=== PATIENT | female | born 1995 | race African-American/Black ===

== ENCOUNTER 2016-12-03 12:29 | Emergency (ER) | payer MEDICAID ==
[~2016-12-03] VITALS: Ht 170.2 cm; Wt 74.8 kg
[~2016-12-03 12:29] MED LIST: ALPR0.25 PO; AMLO10TA2 PO; DIPH25CA61 PO; FAMO-79 PO; HYDR200T PO; MYCO250C PO; NAPR550T3 PO; OXYC5SOL8 PO; PRED2.5T PO; QUET100T4 PO; QUET50TA5 PO; TRAZ50TA18 PO
[2016-12-03] MEDS ORDERED: SERT50TA5 PO (13:49)
[2016-12-03] MEDS ORDERED: IBUP-1222 PO (13:49)
[2016-12-03] MEDS ORDERED: OLAN10TA9 PO (13:49)
[2016-12-03] MEDS ORDERED: ONDANSETRON 2MG/ML, 2ML IVPush ONE (14:00)
[2016-12-03] MEDS ORDERED: ONDANSETRON 2MG/ML, 2ML ONE (14:02)
[2016-12-03] MEDS ORDERED: HYDROmorphone 1 MG/ML, 1ML ONE ×2 (14:02→15:24)
[2016-12-03] MEDS: HYDROmorphone 1 MG/ML, 1ML IVPush PRN ×2 (14:03→15:27)
[2016-12-03 14:06] LABS: PATH.CAST-FLAG NOT PRESENT; SPERM-FLAG NOT PRESENT; SRC-FLAG NOT PRESENT; XTAL-FLAG NOT PRESENT; YLC-FLAG NOT PRESENT
[2016-12-03 14:21] LABS: ASPARTATE AMINO TRANSFERASE 33 U/L (15-37); BLOOD UREA NITROGEN 16 mg/dL (7-18)
[2016-12-03 17:06] VITALS: BP 104/63
== END 2016-12-03 17:28 | disposition home or self-care (01) ==
LOC: ED 17:15
DX: N83.292 Other ovarian cyst, left side (principal); N30.00 Acute cystitis without hematuria; D50.0 Iron deficiency anemia secondary to blood loss (chronic); M54.5 Low back pain
CPT/HCPCS: 36415; 74020; 76830; 80053; 81001; 83690; 84703; 85025; 87086; 96374; 96375; 96376; 99285; J1170; J2405

== ENCOUNTER 2017-07-11 18:36 | Emergency (ER) | payer MEDICAID ==
[~2017-07-11] VITALS: Ht 170.2 cm; Wt 72.4 kg
[~2017-07-11 18:36] MED LIST changes: +IBUP-1222 PO; +NAPR-850 PO; -NAPR550T3 PO; +OLAN10TA9 PO; +SERT50TA5 PO
[2017-07-11 18:39] VITALS: BP 134/92
[2017-07-11] MEDS ORDERED: OXYcodone/APAP 5/325MG TABLET PO ONE (19:00)
[2017-07-11 19:11] LABS: HEMATOCRIT 37.2 % (34.6-47.8); HEMOGLOBIN 12.4 g/dL (11.7-16.4); WHITE BLOOD COUNT 6.9 x10^3/uL (3.4-10)
[2017-07-11 19:22] LABS: BLOOD UREA NITROGEN 17 mg/dL (7-18)
== END 2017-07-11 20:07 | disposition home or self-care (01) ==
LOC: ED 19:36
DX: L03.115 Cellulitis of right lower limb (principal)
CPT/HCPCS: 36415; 80048; 82040; 85025; 99285

== ENCOUNTER 2017-08-13 00:01 | Inpatient (IN) | payer MEDICAID ==
[~2017-08-13] VITALS: Ht 170.2 cm; Wt 105.8 kg
[2017-08-13] MEDS ORDERED: SODIUM CHLORIDE FLUSH 10ML SYR IVF ONE (01:00)
[2017-08-13] MEDS ORDERED: ALBUTEROL/IPRATROPIUM 2.5MG/0.5MG, 3 ML NPPB ONE (01:00)
[2017-08-13] MEDS ORDERED: SODIUM CHLORIDE 0.9% 1,000ML IVBOLUS ONE ×4 (01:00→15:00)
[2017-08-13] MEDS ORDERED: ALBUTEROL/IPRATROPIUM 2.5MG/0.5MG, 3 ML ONE (01:09)
[2017-08-13 01:14] LABS: MEAN CORPUSCULAR HEMOGLOBIN 28.3 pg (27.0-34.8); MEAN PLATELET VOLUME 8.5 fL (7.4-10.4); PLATELET COUNT 265 x10^3/uL (130-400); RED CELL DISTRIBUTION WIDTH 14.3 % (9.6-15.2)
[2017-08-13 01:21] LABS: INTERNATIONAL NORMALIZED RATIO 1.12 (0.93-1.1); PROTHROMBIN TIME 11.6 Seconds (9.6-11.5)
[2017-08-13 01:24] LABS: ALANINE AMINOTRANSFERASE 17 U/L (12-78); ALBUMIN 2.8 g/dL (3.4-5.0); ANION GAP 15 mmol/L (5-15); CALCIUM 8.5 mg/dL (8.5-10.1); CHLORIDE 104 mmol/L (98-107); CREATININE 0.95 mg/dL (0.55-1.02)
[2017-08-13 01:26] LABS: ALKALINE PHOSPHATASE 83 U/L (45-117); BILIRUBIN,TOTAL 3.1 mg/dL (0.2-1.0); TOTAL PROTEIN 8.2 g/dL (6.4-8.2)
[2017-08-13 01:29] LABS: MD YES
[2017-08-13 01:38] LABS: RAPID INFLUENZA A Negative (Negative)
[2017-08-13 01:39] LABS: RAPID INFLUENZA B Negative (Negative)
[2017-08-13 01:39] LABS: BANDS%(MANUAL) 33 % (0-7); LYMPH#(MANUAL) 1.27 x10^3/uL (1-3.4); LYMPHS% (MANUAL) 11 % (22-44); MONOS#(MANUAL) 0.69 x10^3/uL (0.3-2.7); MONOS% (MANUAL) 6 % (2-9); SEG#(MANUAL) 5.75 x10^3/uL (1.8-6.8); SEGS% (MANUAL) 50 % (42-75)
[2017-08-13 01:40] LABS: <PLATELET ESTIMATE> ADEQUATE; ANISOCYTOSIS 1+; LARGE PLATELETS 1+
[2017-08-13] MEDS ORDERED: PROPOFOL 100 ML IV ONE (01:48)
[2017-08-13] MEDS ORDERED: VANCOMYCIN 1,600 MG in SODIUM CHLORIDE 0.9% 250 ML IV ONE (02:00)
[2017-08-13] MEDS ORDERED: PIPERACILLIN/TAZO/PMX 3.375GM 50 ML IV ONE (02:00)
[2017-08-13] MEDS ORDERED: VANCOMYCIN PER PHARMACY MC PRN ×3 (02:00→07:30)
[2017-08-13] MEDS ORDERED: PIPERACILLIN/TAZO/PMX 3.375GM 50 ML ONE (02:16)
[2017-08-13] MEDS ORDERED: LORazepam 2 MG/ML, 1ML IVPush PRN (02:30)
[2017-08-13] MEDS ORDERED: PIPERACILLIN/TAZO/PMX 4.5GM 100 ML IV SCH (02:30)
[2017-08-13] MEDS ORDERED: ONDANSETRON 2MG/ML, 2ML IVPush PRN (02:30)
[2017-08-13] MEDS ORDERED: morphine SULFATE 10 MG/ML, 1ML IVPush PRN (02:30)
[2017-08-13] MEDS ORDERED: POTASSIUM CHLORIDE 40 MEQ in D5%-0.9% NACL 1,000 ML IV SCH (02:30)
[2017-08-13] MEDS ORDERED: ETOMIDATE 40 MG/20 ML IVPush ONE (03:00)
[2017-08-13] MEDS ORDERED: PROPOFOL 100 ML IV PRN (03:00)
[2017-08-13] MEDS ORDERED: VECURONIUM 10 MG IVPush ONE (03:00)
[2017-08-13] MEDS ORDERED: MIDAZOLAM 1 MG/ML, 5ML IVPush ONE (03:00)
[2017-08-13] MEDS ORDERED: SUCCINYLCHOLINE 20 MG/ML, 10ML IVPush ONE (03:00)
[2017-08-13] MEDS ORDERED: MIDAZOLAM 1 MG/ML, 5ML ONE ×3 (03:09→03:17)
[2017-08-13] MEDS ORDERED: VECURONIUM 50 MG in SODIUM CHLORIDE 0.9% 250 ML IV PRN (04:16)
[2017-08-13] MEDS: ENOXAPARIN 40 MG/0.4 ML SQ SCH (04:20)
[2017-08-13] MEDS ORDERED: FENTANYL PF 2,500 MCG in SODIUM CHLORIDE 0.9% 200 ML IV PRN (04:30)
[2017-08-13] MEDS ORDERED: SODIUM CHLORIDE 0.9% 1,000ML IV SCH (04:30)
[2017-08-13] MEDS ORDERED: SENNA/DOCUSATE TABLET NG PRN (04:30)
[2017-08-13] MEDS ORDERED: LIDOCAINE-MPF 1%, 2ML ENDO PRN (04:30)
[2017-08-13] MEDS ORDERED: PHARMACY MAY ADJ FOR RENAL FX MC SCH (04:30)
[2017-08-13] MEDS ORDERED: PHARMACOKINETIC MONITORING MC PRN ×2 (04:30→08:30)
[2017-08-13] MEDS ORDERED: BISACODYL 10 MG SUPP PR PRN (04:30)
[2017-08-13] MEDS ORDERED: SENNOSIDES 8.8 MG/5 ML ORAL SOL NG PRN (04:30)
[2017-08-13] MEDS ORDERED: FENTANYL PF 100 MCG/2ML IVPush PRN (04:30)
[2017-08-13] MEDS ORDERED: LACTULOSE 20 GM/30 ML UDC NG PRN (04:30)
[2017-08-13] MEDS: SODIUM BICARBONATE 8.4% 150 MEQ in DEXTROSE 5% 1,000 ML IV SCH ×3 (05:21→19:44)
[2017-08-13] MEDS: FENTANYL PF 2,500 MCG in SODIUM CHLORIDE 0.9% 200 ML IV PRN (05:21)
[2017-08-13] MEDS: FAMOTIDINE 20 MG/2 ML IV SCH ×2 (05:22→16:41)
[2017-08-13 05:27] LABS: MEAN CORPUSCULAR HEMOGLOBIN 29.1 pg (27.0-34.8); MEAN CORPUSCULAR HGB CONC 33.5 g/dL (32.4-35.8); MEAN CORPUSCULAR VOLUME 87.1 fL (80-100); MEAN PLATELET VOLUME 8.5 fL (7.4-10.4); PLATELET COUNT 215 x10^3/uL (130-400); RED BLOOD COUNT 2.99 x10^6/uL (3.82-5.3); RED CELL DISTRIBUTION WIDTH 15.2 % (9.6-15.2)
[2017-08-13 05:38] LABS: ANION GAP 10 mmol/L (5-15); CALCIUM 6.7 mg/dL (8.5-10.1); CHLORIDE 110 mmol/L (98-107)
[2017-08-13 05:49] LABS: MD YES
[2017-08-13 05:56] LABS: BAND#(MANUAL) 1.88 x10^3/uL; BANDS%(MANUAL) 25 % (0-7); LYMPHS% (MANUAL) 20 % (22-44); METAMYELOCYTES% (MANUAL) 4 % (0-1); MONOS% (MANUAL) 8 % (2-9); NRBC % (MANUAL) 1 % (0-1); SEG#(MANUAL) 3.23 x10^3/uL (1.8-6.8); SEGS% (MANUAL) 43 % (42-75)
[2017-08-13 05:57] LABS: <PLATELET ESTIMATE> ADEQUATE; ANISOCYTOSIS 1+; POLYCHROMASIA 1+
[2017-08-13 05:58] LABS: <PLT MORPHOLOGY> NORMAL PLT MORPH
[2017-08-13 06:00] VITALS: BP 92/48
[2017-08-13] MEDS ORDERED: FLU VACC QS2017-18 (36MOS+) UP/PF 0.5 ML IM-VACC ONE (06:30)
[2017-08-13] MEDS: PROPOFOL 100 ML IV PRN ×3 (07:01→18:17)
[2017-08-13] MEDS: ALBUTEROL/IPRATROPIUM 2.5MG/0.5MG, 3 ML INLINE SCH ×4 (07:15→22:43)
[2017-08-13] MEDS ORDERED: ACETAMINOPHEN 650 MG/20.3 ML UDC ONE (07:19)
[2017-08-13] MEDS: ACETAMINOPHEN 650 MG/20.3 ML UDC PO PRN (07:23)
[2017-08-13 07:35] LABS: FIO2 80 %
[2017-08-13] MEDS ORDERED: NOREPINEPHRINE 1 MG/ML, 4ML ONE (07:45)
[2017-08-13 08:20] LABS: AMPHETAMINE SCREEN, URINE Positive (Negative); BARBITURATE SCREEN, URINE Negative (Negative); BENZODIAZEPINE SCREEN, URINE Positive (Negative); CANNABINOID SCREEN, URINE Positive (Negative); COCAINE SCREEN, URINE Negative (Negative); METHADONE SCREEN, URINE Negative (Negative); OPIATE SCREEN, URINE Positive (Negative)
[2017-08-13 08:24] LABS: THYROID STIMULATING HORMONE 1.4 mIU/L (0.358-3.740)
[2017-08-13] MEDS: PIPERACILLIN/TAZO 4.5 GM in SODIUM CHLORIDE 0.9% 100 ML IVPB SCH ×4 (08:29→23:44)
[2017-08-13] MEDS ORDERED: PIPERACILLIN/TAZO 4.5 GM in SODIUM CHLORIDE 0.9% 100 ML IVPB SCH (08:30)
[2017-08-13] MEDS: POTASSIUM CHLORIDE 10% 40 MEQ/30 ML UDC PO SCH ×2 (08:31→23:26)
[2017-08-13] MEDS ORDERED: FAMOTIDINE 20 MG/2 ML IVPush SCH (09:00)
[2017-08-13] MEDS ORDERED: MAGNESIUM SULFATE PMX 4GM/100M 100 ML IV ONE (09:30)
[2017-08-13] MEDS: VASOPRESSIN 100 UNIT in SODIUM CHLORIDE 0.9% 495 ML IV PRN (09:47)
[2017-08-13] MEDS: HYDROCORTISONE 100 MG INJ. IVPush SCH ×2 (10:16→18:10)
[2017-08-13] MEDS: PHENYLEPHRINE 10 MG in SODIUM CHLORIDE 0.9% 249 ML IV PRN ×2 (10:24→16:39)
[2017-08-13] MEDS: NOREPINEPHRINE 4 MG in SODIUM CHLORIDE 0.9% 246 ML IV PRN ×2 (12:57→18:06)
[2017-08-13 14:09] LABS: FIO2 80 %
[2017-08-13] MEDS ORDERED: VANCOMYCIN 1,600 MG in SODIUM CHLORIDE 0.9% 250 ML IV SCH (15:00)
[2017-08-13 15:09] LABS: ALANINE AMINOTRANSFERASE 15 U/L (12-78); ALBUMIN 1.8 g/dL (3.4-5.0); ANION GAP 15 mmol/L (5-15); CALCIUM 6.9 mg/dL (8.5-10.1); CHLORIDE 107 mmol/L (98-107); CREATININE 1.19 mg/dL (0.55-1.02)
[2017-08-13 15:12] LABS: ALKALINE PHOSPHATASE 65 U/L (45-117); BILIRUBIN,TOTAL 2.8 mg/dL (0.2-1.0)
[2017-08-13 15:17] LABS: MEAN CORPUSCULAR HEMOGLOBIN 29.1 pg (27.0-34.8); MEAN CORPUSCULAR HGB CONC 32.9 g/dL (32.4-35.8); MEAN CORPUSCULAR VOLUME 88.3 fL (80-100); MEAN PLATELET VOLUME 8.8 fL (7.4-10.4); PLATELET COUNT 266 x10^3/uL (130-400); RED BLOOD COUNT 3.47 x10^6/uL (3.82-5.3)
[2017-08-13 15:32] LABS: MD YES
[2017-08-13 15:44] LABS: BAND#(MANUAL) 2.65 x10^3/uL; BANDS%(MANUAL) 34 % (0-7); LYMPHS% (MANUAL) 9 % (22-44); METAMYELOCYTES# (MANUAL) 0.23 x10^3/uL (0-0); METAMYELOCYTES% (MANUAL) 3 % (0-1); MONOS#(MANUAL) 0.31 x10^3/uL (0.3-2.7); MONOS% (MANUAL) 4 % (2-9); MYELOCYTES# (MANUAL) 0.08 x10^3/uL (0-0); MYELOCYTES% (MANUAL) 1 % (0-0); NRBC % (MANUAL) 1 % (0-1); SEGS% (MANUAL) 50 % (42-75)
[2017-08-13 15:45] LABS: <PLATELET ESTIMATE> ADEQUATE; <PLT MORPHOLOGY> NORMAL PLT MORPH; ANISOCYTOSIS 1+
[2017-08-13 15:46] LABS: PMNS WITH VACUOLES 1+
[2017-08-13 15:48] LABS: TOXIC GRAN 2+
[2017-08-13] MEDS ORDERED: POTASSIUM CHLORIDE 10% 40 MEQ/30 ML UDC PO ONE (16:00)
[2017-08-13] MEDS ORDERED: OMNIPAQUE 350 MG/ML, 100ML BOTTLE ONE (16:37)
[2017-08-13] MEDS: VANCOMYCIN 1,600 MG in SODIUM CHLORIDE 0.9% 250 ML IV SCH (17:48)
[2017-08-13] MEDS: NOREPINEPHRINE 16 MG in SODIUM CHLORIDE 0.9% 234 ML IV PRN (19:44)
[2017-08-13 19:47] LABS: MICROSCOPIC INDICATED
[2017-08-13 20:05] LABS: CULTURE INDICATED? NO
[2017-08-13] MEDS: PHENYLEPHRINE 20 MG in SODIUM CHLORIDE 0.9% 248 ML IV PRN (20:33)
[2017-08-13] MEDS: VECURONIUM 50 MG in SODIUM CHLORIDE 0.9% 250 ML IV PRN (20:40)
[2017-08-14] MEDS: PHENYLEPHRINE 20 MG in SODIUM CHLORIDE 0.9% 248 ML IV PRN (00:11)
[2017-08-14] MEDS: NOREPINEPHRINE 16 MG in SODIUM CHLORIDE 0.9% 234 ML IV PRN ×3 (00:12→22:01)
[2017-08-14] MEDS: ACETAMINOPHEN 650 MG/20.3 ML UDC PO PRN (00:14)
[2017-08-14] MEDS: PROPOFOL 100 ML IV PRN ×3 (00:15→18:15)
[2017-08-14] MEDS: SODIUM BICARBONATE 8.4% 150 MEQ in DEXTROSE 5% 1,000 ML IV SCH ×5 (01:44→19:23)
[2017-08-14] MEDS: HYDROCORTISONE 100 MG INJ. IVPush SCH ×3 (01:46→17:11)
[2017-08-14] MEDS: VANCOMYCIN 1,600 MG in SODIUM CHLORIDE 0.9% 250 ML IV SCH (01:46)
[2017-08-14] MEDS: ENOXAPARIN 40 MG/0.4 ML SQ SCH (01:46)
[2017-08-14] MEDS: ALBUTEROL/IPRATROPIUM 2.5MG/0.5MG, 3 ML INLINE SCH ×6 (02:14→22:11)
[2017-08-14] MEDS: PHENYLEPHRINE 80 MG in SODIUM CHLORIDE 0.9% 242 ML IV PRN ×2 (04:05→13:35)
[2017-08-14 04:13] LABS: ALANINE AMINOTRANSFERASE 19 U/L (12-78); ALBUMIN 1.5 g/dL (3.4-5.0); ANION GAP 11 mmol/L (5-15); CHLORIDE 106 mmol/L (98-107); CREATININE 1.48 mg/dL (0.55-1.02)
[2017-08-14 04:15] LABS: ALKALINE PHOSPHATASE 62 U/L (45-117); BILIRUBIN,TOTAL 2.2 mg/dL (0.2-1.0); TOTAL PROTEIN 5.6 g/dL (6.4-8.2)
[2017-08-14 04:19] LABS: CALCIUM 5.9 mg/dL (8.5-10.1)
[2017-08-14 04:22] LABS: MEAN CORPUSCULAR HEMOGLOBIN 29.5 pg (27.0-34.8); MEAN CORPUSCULAR HGB CONC 33.4 g/dL (32.4-35.8); MEAN CORPUSCULAR VOLUME 88.1 fL (80-100); MEAN PLATELET VOLUME 8.7 fL (7.4-10.4); PLATELET COUNT 286 x10^3/uL (130-400); RED BLOOD COUNT 3.46 x10^6/uL (3.82-5.3); RED CELL DISTRIBUTION WIDTH 15.2 % (9.6-15.2)
[2017-08-14] MEDS ORDERED: CALCIUM GLUCONATE 9.2 MEQ in SODIUM CHLORIDE 0.9% 100 ML IV ONE ×2 (04:30→12:00)
[2017-08-14] MEDS ORDERED: ACETAMINOPHEN 650 MG SUPP PR PRN (04:30)
[2017-08-14 04:43] LABS: MD YES
[2017-08-14 04:46] LABS: ANISOCYTOSIS 1+; BAND#(MANUAL) 6.03 x10^3/uL; BANDS%(MANUAL) 46 % (0-7); LYMPH#(MANUAL) 0.79 x10^3/uL (1-3.4); LYMPHS% (MANUAL) 6 % (22-44); METAMYELOCYTES# (MANUAL) 0.13 x10^3/uL (0-0); METAMYELOCYTES% (MANUAL) 1 % (0-1); MONOS#(MANUAL) 0.39 x10^3/uL (0.3-2.7); MONOS% (MANUAL) 3 % (2-9); SEG#(MANUAL) 5.76 x10^3/uL (1.8-6.8); SEGS% (MANUAL) 44 % (42-75); TOXIC GRAN 2+
[2017-08-14 04:47] LABS: <PLATELET ESTIMATE> ADEQUATE; <PLT MORPHOLOGY> NORMAL PLT MORPH; PMNS WITH VACUOLES 1+
[2017-08-14 05:00] VITALS: BP 89/45
[2017-08-14] MEDS: FAMOTIDINE 20 MG/2 ML IV SCH ×2 (05:00→15:47)
[2017-08-14] MEDS ORDERED: SODIUM BICARBONATE 8.4% 150 MEQ in DEXTROSE 5% 1,000 ML IV SCH (05:00)
[2017-08-14] MEDS ORDERED: CALCIUM CHLORIDE 13.6 MEQ in SODIUM CHLORIDE 0.9% 100 ML IV ONE (07:30)
[2017-08-14] MEDS: PIPERACILLIN/TAZO 4.5 GM in SODIUM CHLORIDE 0.9% 100 ML IVPB SCH ×2 (07:53→15:47)
[2017-08-14] MEDS ORDERED: MICAFUNGIN 100 MG in SODIUM CHLORIDE 0.9% 100 ML IV SCH (08:30)
[2017-08-14] MEDS: FENTANYL PF 2,500 MCG in SODIUM CHLORIDE 0.9% 200 ML IV PRN (11:01)
[2017-08-14] MEDS: LINEZOLID PMX 600MG/300ML 300 ML IV SCH (13:11)
[2017-08-14] MEDS ORDERED: PHENYLEPHRINE 20 MG in SODIUM CHLORIDE 0.9% 248 ML IV PRN (20:00)
[2017-08-15] MEDS: PIPERACILLIN/TAZO 4.5 GM in SODIUM CHLORIDE 0.9% 100 ML IVPB SCH ×2 (00:10→08:37)
[2017-08-15] MEDS: LINEZOLID PMX 600MG/300ML 300 ML IV SCH ×2 (00:10→15:21)
[2017-08-15] MEDS: SODIUM BICARBONATE 8.4% 150 MEQ in DEXTROSE 5% 1,000 ML IV SCH ×3 (01:12→15:26)
[2017-08-15] MEDS: VASOPRESSIN 100 UNIT in SODIUM CHLORIDE 0.9% 495 ML IV PRN (01:12)
[2017-08-15] MEDS: HYDROCORTISONE 100 MG INJ. IVPush SCH ×3 (02:13→18:34)
[2017-08-15] MEDS: ENOXAPARIN 40 MG/0.4 ML SQ SCH (02:13)
[2017-08-15] MEDS: ALBUTEROL/IPRATROPIUM 2.5MG/0.5MG, 3 ML INLINE SCH ×6 (03:31→23:22)
[2017-08-15 04:00] VITALS: BP 95/50
[2017-08-15] MEDS: FAMOTIDINE 20 MG/2 ML IV SCH ×2 (04:28→15:26)
[2017-08-15 04:54] LABS: MEAN CORPUSCULAR HEMOGLOBIN 29.6 pg (27.0-34.8); MEAN CORPUSCULAR HGB CONC 33.7 g/dL (32.4-35.8); MEAN CORPUSCULAR VOLUME 87.8 fL (80-100); MEAN PLATELET VOLUME 8.7 fL (7.4-10.4); PLATELET COUNT 152 x10^3/uL (130-400); RED BLOOD COUNT 3.07 x10^6/uL (3.82-5.3); RED CELL DISTRIBUTION WIDTH 15.5 % (9.6-15.2)
[2017-08-15 04:55] LABS: ANION GAP 11 mmol/L (5-15); CALCIUM 6.2 mg/dL (8.5-10.1); CHLORIDE 99 mmol/L (98-107)
[2017-08-15 04:57] LABS: CREATININE 1.34 mg/dL (0.55-1.02)
[2017-08-15 05:38] LABS: MD YES
[2017-08-15 05:41] LABS: BAND#(MANUAL) 0.91 x10^3/uL; BANDS%(MANUAL) 9 % (0-7); LYMPH#(MANUAL) 0.81 x10^3/uL (1-3.4); LYMPHS% (MANUAL) 8 % (22-44); METAMYELOCYTES% (MANUAL) 4 % (0-1); MONOS% (MANUAL) 2 % (2-9); SEG#(MANUAL) 7.78 x10^3/uL (1.8-6.8); SEGS% (MANUAL) 77 % (42-75)
[2017-08-15 05:42] LABS: ANISOCYTOSIS 1+; PMNS WITH VACUOLES 1+; TOXIC GRAN 2+
[2017-08-15 05:44] LABS: <PLATELET ESTIMATE> ADEQUATE; BASOPHILLIC STIPPLING 1+
[2017-08-15 05:45] LABS: POLYCHROMASIA 1+
[2017-08-15 05:48] LABS: ECHINOCYTES 1+
[2017-08-15 05:49] LABS: <PLT MORPHOLOGY> NORMAL PLT MORPH
[2017-08-15] MEDS: VECURONIUM 50 MG in SODIUM CHLORIDE 0.9% 250 ML IV PRN (06:20)
[2017-08-15] MEDS: FENTANYL PF 2,500 MCG in SODIUM CHLORIDE 0.9% 200 ML IV PRN (06:21)
[2017-08-15] MEDS: PROPOFOL 100 ML IV PRN ×3 (06:50→22:53)
[2017-08-15] MEDS ORDERED: POTASSIUM CHLORIDE 40 MEQ in SODIUM CHLORIDE 0.9% 100 ML IV ONE (07:30)
[2017-08-16] MEDS: LINEZOLID PMX 600MG/300ML 300 ML IV SCH ×2 (02:08→15:08)
[2017-08-16] MEDS: ENOXAPARIN 40 MG/0.4 ML SQ SCH (02:08)
[2017-08-16] MEDS: HYDROCORTISONE 100 MG INJ. IVPush SCH ×2 (02:08→14:02)
[2017-08-16] MEDS: ALBUTEROL/IPRATROPIUM 2.5MG/0.5MG, 3 ML INLINE SCH ×6 (03:36→23:21)
[2017-08-16] MEDS: PROPOFOL 100 ML IV PRN (04:02)
[2017-08-16] MEDS: FENTANYL PF 2,500 MCG in SODIUM CHLORIDE 0.9% 200 ML IV PRN (04:03)
[2017-08-16] MEDS: FAMOTIDINE 20 MG/2 ML IV SCH ×2 (04:03→16:24)
[2017-08-16 04:25] VITALS: BP 125/92
[2017-08-16 04:38] LABS: ANION GAP 9 mmol/L (5-15); CHLORIDE 97 mmol/L (98-107); CREATININE 1.25 mg/dL (0.55-1.02); TRIGLYCERIDES 902 mg/dL (50-200)
[2017-08-16 04:40] LABS: MEAN CORPUSCULAR HEMOGLOBIN 29.8 pg (27.0-34.8); MEAN CORPUSCULAR HGB CONC 34.3 g/dL (32.4-35.8); MEAN CORPUSCULAR VOLUME 86.7 fL (80-100); MEAN PLATELET VOLUME 8.9 fL (7.4-10.4); PLATELET COUNT 156 x10^3/uL (130-400); RED BLOOD COUNT 2.82 x10^6/uL (3.82-5.3); RED CELL DISTRIBUTION WIDTH 15.4 % (9.6-15.2)
[2017-08-16 04:43] LABS: CALCIUM 5.9 mg/dL (8.5-10.1)
[2017-08-16 04:56] LABS: MD YES
[2017-08-16 04:58] LABS: BAND#(MANUAL) 1.36 x10^3/uL; BANDS%(MANUAL) 11 % (0-7); LYMPH#(MANUAL) 1.24 x10^3/uL (1-3.4); LYMPHS% (MANUAL) 10 % (22-44); METAMYELOCYTES# (MANUAL) 0.12 x10^3/uL (0-0); METAMYELOCYTES% (MANUAL) 1 % (0-1); MONOS% (MANUAL) 4 % (2-9); SEG#(MANUAL) 9.18 x10^3/uL (1.8-6.8); SEGS% (MANUAL) 74 % (42-75)
[2017-08-16 04:59] LABS: ANISOCYTOSIS 1+; ECHINOCYTES 1+; PMNS WITH VACUOLES 1+; POLYCHROMASIA 1+; TOXIC GRAN 2+
[2017-08-16 05:00] LABS: <PLATELET ESTIMATE> ADEQUATE; <PLT MORPHOLOGY> NORMAL PLT MORPH
[2017-08-16] MEDS ORDERED: CALCIUM GLUCONATE 9.2 MEQ in SODIUM CHLORIDE 0.9% 100 ML IV ONE (05:00)
[2017-08-16] MEDS ORDERED: SODIUM BICARBONATE 8.4% 150 MEQ in DEXTROSE 5% 1,000 ML IV SCH (05:00)
[2017-08-16] MEDS: VECURONIUM 50 MG in SODIUM CHLORIDE 0.9% 250 ML IV PRN (06:07)
[2017-08-16] MEDS ORDERED: RIFAMPIN 600 MG IVPB STA (06:58)
[2017-08-16] MEDS: RIFAMPIN 600 MG in SODIUM CHLORIDE 0.9% 100 ML IV SCH (07:30)
[2017-08-16] MEDS ORDERED: CALCIUM CHLORIDE 13.6 MEQ in SODIUM CHLORIDE 0.9% 100 ML IV ONE (08:00)
[2017-08-16] MEDS: SODIUM CHLORIDE 0.9% 1,000 ML IV SCH ×2 (09:42→19:51)
[2017-08-16] MEDS: MIDAZOLAM HCL 25 MG in SODIUM CHLORIDE 0.9% 245 ML IV PRN ×2 (09:43→15:19)
[2017-08-16] MEDS: POTASSIUM CHLORIDE 10% 40 MEQ/30 ML UDC PO SCH ×2 (12:33→21:34)
[2017-08-16] MEDS: MIDAZOLAM HCL 50 MG in SODIUM CHLORIDE 0.9% 240 ML IV PRN (20:15)
[2017-08-17] MEDS: HYDROCORTISONE 100 MG INJ. IVPush SCH ×2 (02:00→14:47)
[2017-08-17] MEDS: LINEZOLID PMX 600MG/300ML 300 ML IV SCH ×2 (02:41→14:45)
[2017-08-17] MEDS: ENOXAPARIN 40 MG/0.4 ML SQ SCH (02:41)
[2017-08-17] MEDS: ALBUTEROL/IPRATROPIUM 2.5MG/0.5MG, 3 ML INLINE SCH ×6 (02:56→22:52)
[2017-08-17 04:00] VITALS: BP 128/67
[2017-08-17 05:07] LABS: MEAN CORPUSCULAR HEMOGLOBIN 29.5 pg (27.0-34.8); MEAN CORPUSCULAR HGB CONC 34.1 g/dL (32.4-35.8); MEAN CORPUSCULAR VOLUME 86.5 fL (80-100); MEAN PLATELET VOLUME 8.8 fL (7.4-10.4); PLATELET COUNT 127 x10^3/uL (130-400); RED BLOOD COUNT 2.51 x10^6/uL (3.82-5.3); RED CELL DISTRIBUTION WIDTH 15.4 % (9.6-15.2)
[2017-08-17] MEDS: FAMOTIDINE 20 MG/2 ML IV SCH ×2 (05:09→18:40)
[2017-08-17] MEDS: SODIUM CHLORIDE 0.9% 1,000 ML IV SCH ×2 (05:10→15:56)
[2017-08-17 05:29] LABS: ANION GAP 7 mmol/L (5-15); CALCIUM 6.8 mg/dL (8.5-10.1); CHLORIDE 103 mmol/L (98-107); CREATININE 1.21 mg/dL (0.55-1.02)
[2017-08-17 05:35] LABS: MD YES
[2017-08-17 05:37] LABS: BAND#(MANUAL) 2.15 x10^3/uL; BANDS%(MANUAL) 13 % (0-7); LYMPH#(MANUAL) 1.82 x10^3/uL (1-3.4); LYMPHS% (MANUAL) 11 % (22-44); METAMYELOCYTES# (MANUAL) 0.33 x10^3/uL (0-0); METAMYELOCYTES% (MANUAL) 2 % (0-1); MONOS#(MANUAL) 0.83 x10^3/uL (0.3-2.7); MONOS% (MANUAL) 5 % (2-9); MYELOCYTES# (MANUAL) 0.17 x10^3/uL (0-0); MYELOCYTES% (MANUAL) 1 % (0-0); NRBC % (MANUAL) 2 % (0-1); SEG#(MANUAL) 11.22 x10^3/uL (1.8-6.8); SEGS% (MANUAL) 68 % (42-75)
[2017-08-17 05:38] LABS: <PLATELET ESTIMATE> DECREASED; <PLT MORPHOLOGY> NORMAL PLT MORPH; ANISOCYTOSIS 1+; PMNS WITH VACUOLES 1+; POLYCHROMASIA 1+; TOXIC GRAN 2+
[2017-08-17] MEDS: MIDAZOLAM HCL 50 MG in SODIUM CHLORIDE 0.9% 240 ML IV PRN ×3 (07:47→19:53)
[2017-08-17] MEDS: RIFAMPIN 600 MG in SODIUM CHLORIDE 0.9% 100 ML IV SCH (07:48)
[2017-08-17] MEDS ORDERED: DEXTROSE 50%, 50ML SYRINGE ONE (08:00)
[2017-08-17] MEDS ORDERED: EPINEPHRINE SYRINGE 0.1 MG/ML, 10ML ONE (08:00)
[2017-08-17] MEDS: POTASSIUM CHLORIDE 10% 40 MEQ/30 ML UDC PO SCH ×2 (08:08→21:02)
[2017-08-17] MEDS ORDERED: METHYLNALTREXONE 12 MG/0.6 ML SQ SCH (09:00)
[2017-08-17] MEDS: ZIPRASIDONE 20 MG INJ IM PRN ×2 (10:59→23:18)
[2017-08-17] MEDS: ALBUMIN HUMAN 25% 100 ML IV SCH ×2 (12:58→19:58)
[2017-08-17] MEDS: DEXMEDETOMIDINE 200 MCG in SODIUM CHLORIDE 0.9% 48 ML IV PRN ×5 (12:58→21:56)
[2017-08-17] MEDS ORDERED: FUROSEMIDE 20 MG/2 ML ONE (14:40)
[2017-08-17] MEDS ORDERED: FUROSEMIDE 40 MG/4 ML ONE (14:52)
[2017-08-17] MEDS: ACETAMINOPHEN 650 MG/20.3 ML UDC PO PRN (15:07)
[2017-08-17] MEDS: FUROSEMIDE 40 MG/4 ML IV SCH (16:42)
[2017-08-17] MEDS: DIAZEPAM 5 MG/ML, 10ML VIAL IV PRN ×2 (16:42→22:29)
[2017-08-17] MEDS: POTASSIUM CHLORIDE 40 MEQ in SODIUM CHLORIDE 0.9% 100 ML IV SCH ×2 (17:31→18:40)
[2017-08-18] MEDS: DEXMEDETOMIDINE 200 MCG in SODIUM CHLORIDE 0.9% 48 ML IV PRN ×3 (00:08→05:07)
[2017-08-18] MEDS: MIDAZOLAM HCL 50 MG in SODIUM CHLORIDE 0.9% 240 ML IV PRN ×2 (01:14→18:17)
[2017-08-18] MEDS: HYDROCORTISONE 100 MG INJ. IVPush SCH ×2 (01:52→14:41)
[2017-08-18] MEDS: ENOXAPARIN 40 MG/0.4 ML SQ SCH (02:06)
[2017-08-18] MEDS: SODIUM CHLORIDE 0.9% 1,000 ML IV SCH (02:49)
[2017-08-18] MEDS: LINEZOLID PMX 600MG/300ML 300 ML IV SCH (02:55)
[2017-08-18] MEDS: ALBUMIN HUMAN 25% 100 ML IV SCH ×2 (03:58→13:21)
[2017-08-18 04:00] VITALS: BP 129/69
[2017-08-18 04:12] LABS: MEAN CORPUSCULAR HEMOGLOBIN 29.9 pg (27.0-34.8); MEAN CORPUSCULAR HGB CONC 33.7 g/dL (32.4-35.8); MEAN CORPUSCULAR VOLUME 88.7 fL (80-100); MEAN PLATELET VOLUME 8.6 fL (7.4-10.4); PLATELET COUNT 100 x10^3/uL (130-400); RED BLOOD COUNT 2.36 x10^6/uL (3.82-5.3); RED CELL DISTRIBUTION WIDTH 15.8 % (9.6-15.2)
[2017-08-18 04:21] LABS: ANION GAP 13 mmol/L (5-15); CALCIUM 7.1 mg/dL (8.5-10.1); CHLORIDE 109 mmol/L (98-107); CREATININE 1.32 mg/dL (0.55-1.02)
[2017-08-18] MEDS ORDERED: DEXTROSE 50%, 50ML SYRINGE ONE ×4 (04:29→18:29)
[2017-08-18] MEDS ORDERED: FENTANYL PF 2,500 MCG in SODIUM CHLORIDE 0.9% 200 ML IV PRN (04:30)
[2017-08-18] MEDS: FAMOTIDINE 20 MG/2 ML IV SCH ×2 (04:40→18:17)
[2017-08-18 04:51] LABS: MD YES
[2017-08-18 04:53] LABS: BAND#(MANUAL) 2.43 x10^3/uL; BANDS%(MANUAL) 11 % (0-7); LYMPH#(MANUAL) 3.76 x10^3/uL (1-3.4); LYMPHS% (MANUAL) 17 % (22-44); METAMYELOCYTES# (MANUAL) 0.88 x10^3/uL (0-0); METAMYELOCYTES% (MANUAL) 4 % (0-1); MYELOCYTES# (MANUAL) 0.22 x10^3/uL (0-0); MYELOCYTES% (MANUAL) 1 % (0-0); NRBC % (MANUAL) 1 % (0-1); SEG#(MANUAL) 14.81 x10^3/uL (1.8-6.8); SEGS% (MANUAL) 67 % (42-75)
[2017-08-18 04:54] LABS: ANISOCYTOSIS 1+; HYPOCHROMIA 1+; MICROCYTOSIS 1+; POLYCHROMASIA 1+; TOXIC GRAN 2+
[2017-08-18 04:55] LABS: <PLATELET ESTIMATE> DECREASED; <PLT MORPHOLOGY> NORMAL PLT MORPH; PMNS WITH VACUOLES 1+
[2017-08-18] MEDS ORDERED: DEXTROSE 50%, 50ML SYRINGE IVPush ONE ×3 (05:00→18:30)
[2017-08-18] MEDS: ALBUTEROL/IPRATROPIUM 2.5MG/0.5MG, 3 ML INLINE SCH ×5 (07:11→19:41)
[2017-08-18] MEDS ORDERED: MIRTAZAPINE 15 MG TAB.RAPDIS PO SCH (09:00)
[2017-08-18] MEDS: FUROSEMIDE 40 MG/4 ML IV SCH (09:50)
[2017-08-18] MEDS: RIFAMPIN 600 MG in SODIUM CHLORIDE 0.9% 100 ML IV SCH (09:50)
[2017-08-18] MEDS: CALCIUM CHLORIDE 10% IV SCH ×2 (11:11→22:13)
[2017-08-18] MEDS: SODIUM CHLORIDE 0.9% IV SCH ×2 (11:11→22:13)
[2017-08-18] MEDS: VECURONIUM 50 MG in SODIUM CHLORIDE 0.9% 250 ML IV PRN ×3 (11:12→20:16)
[2017-08-18] MEDS ORDERED: D5%-0.45% NACL 1,000 ML IV SCH (12:00)
[2017-08-18] MEDS ORDERED: SODIUM BICARBONATE 8.4% 150 MEQ in DEXTROSE 5% 1,000 ML IV SCH (13:00)
[2017-08-18] MEDS ORDERED: CEFTAROLINE 600 MG in SODIUM CHLORIDE 0.9% 100 ML IV SCH (13:30)
[2017-08-18] MEDS ORDERED: FUROSEMIDE 40 MG/4 ML IV SCH (15:00)
[2017-08-18] MEDS: SODIUM BICARBONATE 8.4% 150 MEQ in DEXTROSE 5% 1,000 ML IV SCH ×2 (19:23→20:17)
[2017-08-18] MEDS ORDERED: NOREPINEPHRINE 8 MG in SODIUM CHLORIDE 0.9% 242 ML IV PRN (20:00)
[2017-08-18 20:39] LABS: TROPONIN I 0.574 ng/mL (0.000-0.045)
[2017-08-18] MEDS ORDERED: ALBUMIN HUMAN 25% 100 ML IV SCH (21:30)
[2017-08-18] MEDS: VASOPRESSIN 100 UNIT in SODIUM CHLORIDE 0.9% 495 ML IV PRN (22:14)
== END 2017-08-19 03:31 | disposition expired | DRG 853 ==
LOC: ED 00:42 → EDIP 02:11 → CCU 03:59
PROVIDERS: ADMIT Internal Medicine; ATTEND Internal Medicine
PROC: 0BH17EZ Insertion of Endotracheal Airway into Trachea, Via Natural or Artificial Opening (ICD-10-PCS; principal; 2017-08-13)
PROC: 0B9J8ZX Drainage of Left Lower Lung Lobe, Via Natural or Artificial Opening Endoscopic, Diagnostic (ICD-10-PCS; 2017-08-13)
PROC: 5A1955Z Respiratory Ventilation, Greater than 96 Consecutive Hours (ICD-10-PCS; 2017-08-13)
PROC: 0B9F8ZX Drainage of Right Lower Lung Lobe, Via Natural or Artificial Opening Endoscopic, Diagnostic (ICD-10-PCS; 2017-08-13)
PROC: 02HV33Z Insertion of Infusion Device into Superior Vena Cava, Percutaneous Approach (ICD-10-PCS; 2017-08-13)
PROC: B548ZZA Ultrasonography of Superior Vena Cava, Guidance (ICD-10-PCS; 2017-08-13)
PROC: 0T9B70Z Drainage of Bladder with Drainage Device, Via Natural or Artificial Opening (ICD-10-PCS; 2017-08-13)
PROC: 5A1D70Z Performance of Urinary Filtration, Intermittent, Less than 6 Hours Per Day (ICD-10-PCS; 2017-08-18)
PROC: 06H033Z Insertion of Infusion Device into Inferior Vena Cava, Percutaneous Approach (ICD-10-PCS; 2017-08-18)
PROC: B549ZZA Ultrasonography of Inferior Vena Cava, Guidance (ICD-10-PCS; 2017-08-18)
DX: A41.02 Sepsis due to Methicillin resistant Staphylococcus aureus (principal); J96.01 Acute respiratory failure with hypoxia; N17.0 Acute kidney failure with tubular necrosis; R65.21 Severe sepsis with septic shock; E43 Unspecified severe protein-calorie malnutrition; J15.212 Pneumonia due to Methicillin resistant Staphylococcus aureus; J90 Pleural effusion, not elsewhere classified; G93.40 Encephalopathy, unspecified; Z99.11 Dependence on respirator [ventilator] status; L97.419 Non-pressure chronic ulcer of right heel and midfoot with unspecified severity; M32.9 Systemic lupus erythematosus, unspecified; D63.8 Anemia in other chronic diseases classified elsewhere; E78.1 Pure hyperglyceridemia; E87.6 Hypokalemia; F15.90 Other stimulant use, unspecified, uncomplicated; F32.9 Major depressive disorder, single episode, unspecified; K52.9 Noninfective gastroenteritis and colitis, unspecified; K59.00 Constipation, unspecified; M19.90 Unspecified osteoarthritis, unspecified site; F17.210 Nicotine dependence, cigarettes, uncomplicated; Z91.5 Personal history of self-harm; Z90.49 Acquired absence of other specified parts of digestive tract; Z79.899 Other long term (current) drug therapy; Z68.36 Body mass index [BMI] 36.0-36.9, adult
CPT/HCPCS: 31500; 31624; 36415; 36556; 36569; 36600; 51702; 71045; 71260; 74018; 74177; 76937; 77001; 80048; 80053; 80307; 81001; 82306; 82330; 82533; 82784; 82787; 82803; 82805; 82962; 83605; 83690; 83735; 83970; 84100; 84443; 84478; 84484; 84702; 85025; 85610; 85730; 86703; 86710; 86738; 87015; 87040; 87070; 87077; 87081; 87102; 87116; 87147; 87186; 87205; 87206; 87252; 87400; 87633; 87899; 88108; 88112; 88312; 93005; 93970; 94002; 94003; 94640; 96361; 96365; 96366; 96368; 96372; 96375; C1894; J0610; J0712; J1650; J1940; J2020; J2248; J2250; J2543; J2704; J3010; J3360; J3370; J3480; J3486; J7070; J7620; P9047; Q9967; C1751; G0435; J1642; J1720; J2270; J2370; J3475; J7030; J7040; J7050; S0028